=== PATIENT | male | born 1980 | race Two or more races ===

== ENCOUNTER 2023-02-24 16:19 | Emergency (ER) | payer SELFPAY ==
[~2023-02-24] VITALS: Ht 167.6 cm; Wt 81.0 kg
[2023-02-24 16:30] VITALS: TEMP 98.3; O2SAT 98
[2023-02-24] MEDS ORDERED: FOLIC ACID 1 MG, THIAMINE HCL 100 MG, MVI, ADULT NO.1 10 ML in DEXTROSE 5% WATER 1,000 ML IV ONE ×4 (16:30)
[2023-02-24 19:44] LABS: BASOPHILS % 1.1 % (0.0-2.0); EOSINOPHILS % 4.2 % (0.0-5.0); HEMATOCRIT. 29.7 % (42.0-52.0); HEMOGLOBIN. 9.1 g/dL (14.0-18.0); LYMPHOCYTES % 50.9 % (20.0-50.0); MEAN CORPUSCULAR HEMOGLOBIN 20.3 pg (28.0-32.0); MEAN CORPUSCULAR HGB CONC 30.8 g/dL (31.0-37.0); MEAN CORPUSCULAR VOLUME 65.9 fL (80.0-94.0); MEAN PLATELET VOLUME 8.1 fl (7.4-10.4); MONOCYTES % 8.1 % (2.0-8.0); NEUTROPHILS % 35.7 % (40.0-76.0); PLATELET 120 x1000/uL (130-400); RED CELL DISTRIBUTION WIDTH 24.3 % (11.6-14.6); WHITE BLOOD COUNT 3.2 x1000/uL (4.5-11.0)
[2023-02-24 19:45] LABS: ADD RBC MORPHOLOGY YES; DIFFERENTIAL COMMENT 1
[2023-02-24 19:59] LABS: CHLORIDE 110 mEq/L (98-107); INDEX HEMOLYSI 1 (1-3); INDEX ICTERIC 1 (1-4); INDEX LIPEMIC 1 (1-3); POTASSIUM 3.4 mEq/L (3.5-5.1); SODIUM 143 mEq/L (136-145)
[2023-02-24 20:08] LABS: ACETAMINOPHEN <2 ug/mL ug/mL (10-30); CALCIUM 7.6 mg/dL (8.5-10.1); CARBON DIOXIDE 31 mEq/L (21-32); CREATININE 0.5 mg/dL (0.6-1.3); GLUCOSE 107 mg/dL (70-105); UREA NITROGEN BLOOD 5 mg/dL (7-21)
[2023-02-24 20:27] LABS: ETHANOL BLOOD 503 mg/dL (-10)
[2023-02-24 20:41] VITALS: BP 128/70; PULSE 80; RESP 15
[2023-02-24 20:54] LABS: ANISOCYTOSIS 2+; HYPOCHROMASIA 1+; MICROCYTOSIS 3+; OVALOCYTES 1+; PLATELET ESTIMATE DECREASED; TARGET CELLS 1+
== END 2023-02-24 20:42 | disposition home or self-care (01) ==
LOC: ER 18:18
DX: T51.0X1A Toxic effect of ethanol, accidental (unintentional), initial encounter (principal); D61.818 Other pancytopenia; X58.XXXA Exposure to other specified factors, initial encounter
CPT/HCPCS: 36415; 80048; 80307; 80320; 80329; 85025; 99284; J3411; J3490; J7070; G0480

== ENCOUNTER 2024-07-24 00:22 | Emergency (ER) | payer SELFPAY ==
[~2024-07-24] VITALS: Ht 170.2 cm; Wt 82.0 kg
[2024-07-24 00:33] VITALS: BP 120/88; PULSE 88; RESP 14; TEMP 36.6; O2SAT 100
[2024-07-24] MEDS ORDERED: CEPH500C2 MT (04:18)
[2024-07-24] MEDS: KETOROLAC 15MG/ML VIAL IM ONE (04:41)
== END 2024-07-24 04:50 | disposition home or self-care (01) ==
LOC: ER 00:22 → EDUNIT# 00:22 → ER 04:50
DX: S09.8XXA Other specified injuries of head, initial encounter (principal); S00.83XA Contusion of other part of head, initial encounter; W19.XXXA Unspecified fall, initial encounter; Y93.89 Activity, other specified; Y92.89 Other specified places as the place of occurrence of the external cause; Y99.8 Other external cause status
CPT/HCPCS: 99285; 70450; 70486; 96372; J1885

== ENCOUNTER 2024-07-28 07:25 | Emergency (ER) | payer MEDICAID ==
[~2024-07-28] VITALS: Ht 172.7 cm; Wt 82.0 kg
[~2024-07-28 07:25] MED LIST: CEPH500C2 MT
[2024-07-28 07:32] VITALS: O2SAT 100
[2024-07-28 07:43] VITALS: BP 109/84; PULSE 110; RESP 18; TEMP 36.9; O2SAT 100
[2024-07-28 09:31] LABS: CHLORIDE 106 mEq/L (98-107); POTASSIUM 3.5 mEq/L (3.5-5.1); SODIUM 142 mEq/L (136-145)
[2024-07-28 09:32] LABS: CALCIUM 9.6 mg/dL (8.7-10.4); CARBON DIOXIDE 27 mEq/L (21-32)
[2024-07-28 09:37] LABS: CREATININE 0.6 mg/dL (0.6-1.3); GLUCOSE 91 mg/dL (70-105)
[2024-07-28 09:41] LABS: BASOPHILS % 2.2 % (0.0-2.0); DIFFERENTIAL COMMENT 0; EOSINOPHILS % 2.5 % (0.0-5.0); HEMATOCRIT. 31.3 % (42.0-52.0); LYMPHOCYTES % 20.4 % (20.0-50.0); MEAN CORPUSCULAR HEMOGLOBIN 25.1 pg (28.0-32.0); MEAN CORPUSCULAR HGB CONC 31.9 g/dL (31.0-37.0); MEAN CORPUSCULAR VOLUME 78.7 fL (80.0-94.0); MEAN PLATELET VOLUME 6.4 fl (7.4-10.4); MONOCYTES % 8.6 % (2.0-8.0); NEUTROPHILS % 66.3 % (40.0-76.0); PLATELET 711 x1000/uL (130-400); RED BLOOD CELL COUNT 3.98 mill/uL (4.7-6.1); RED CELL DISTRIBUTION WIDTH 21.6 % (11.6-14.6); WHITE BLOOD COUNT 8.6 x1000/uL (4.5-11.0)
[2024-07-28 09:54] LABS: TROPONIN I HIGH SENSITIVITY < 4 ng/L (3.0-53); UREA NITROGEN BLOOD < 5 mg/dL (9-23)
[2024-07-28] MEDS ORDERED: IBUP-2029 MT (10:07)
[2024-07-28] MEDS ORDERED: TUSSL MT (10:08)
== END 2024-07-28 10:45 | disposition home or self-care (01) ==
LOC: ER 07:25
DX: J06.9 Acute upper respiratory infection, unspecified (principal); B34.9 Viral infection, unspecified
CPT/HCPCS: 36415; 71045; 80048; 83880; 84484; 85025; 93005; 99285

== ENCOUNTER 2024-08-29 16:46 | Emergency (ER) | payer MEDICAID ==
[~2024-08-29] VITALS: Ht 165.1 cm; Wt 95.0 kg
[~2024-08-29 16:46] MED LIST changes: +IBUP-2029 MT; +TUSSL MT
[2024-08-29 16:54] VITALS: BP 117/78; PULSE 110; RESP 18; TEMP 37; O2SAT 98
== END 2024-08-29 18:20 | disposition left against medical advice (07) ==
LOC: ER 16:46
DX: M79.601 Pain in right arm (principal); Y08.89XA Assault by other specified means, initial encounter; Y93.89 Activity, other specified; Y92.89 Other specified places as the place of occurrence of the external cause; Y99.8 Other external cause status; Z53.21 Procedure and treatment not carried out due to patient leaving prior to being seen by health care provider

== ENCOUNTER 2024-08-31 13:47 | Emergency (ER) | payer MEDICAID ==
[~2024-08-31] VITALS: Ht 167.6 cm; Wt 82.0 kg
[2024-08-31 13:49] VITALS: O2SAT 97
[2024-08-31 15:02] LABS: CHLORIDE 99 mEq/L (98-107); POTASSIUM 2.9 mEq/L (3.5-5.1); SODIUM 143 mEq/L (136-145)
[2024-08-31 15:03] LABS: CALCIUM 8.9 mg/dL (8.7-10.4); CARBON DIOXIDE 27 mEq/L (21-32)
[2024-08-31 15:08] LABS: CREATININE 0.5 mg/dL (0.6-1.3); GLUCOSE 98 mg/dL (70-105)
[2024-08-31 15:11] LABS: PROTHROMBIN TIME 10.5 sec (9.6-11.0)
[2024-08-31 15:13] LABS: UREA NITROGEN BLOOD < 5 mg/dL (9-23)
[2024-08-31 15:15] LABS: BASOPHILS % 0.4 % (0.0-2.0); DIFFERENTIAL COMMENT 0; EOSINOPHILS % 0.1 % (0.0-5.0); HEMATOCRIT. 28.9 % (42.0-52.0); HEMOGLOBIN. 8.9 g/dL (14.0-18.0); LYMPHOCYTES % 11.2 % (20.0-50.0); MEAN CORPUSCULAR HEMOGLOBIN 22.3 pg (28.0-32.0); MEAN CORPUSCULAR HGB CONC 30.9 g/dL (31.0-37.0); MEAN PLATELET VOLUME 6.7 fl (7.4-10.4); MONOCYTES % 11.5 % (2.0-8.0); NEUTROPHILS % 76.8 % (40.0-76.0); PLATELET 174 x1000/uL (130-400); RED BLOOD CELL COUNT 4.01 mill/uL (4.7-6.1); RED CELL DISTRIBUTION WIDTH 21.7 % (11.6-14.6); WHITE BLOOD COUNT 6.2 x1000/uL (4.5-11.0)
[2024-08-31 15:23] LABS: ETHANOL BLOOD 449 mg/dL (<10)
[2024-08-31] MEDS ORDERED: POTASSIUM CHLORIDE 20MEQ TABLET SR PO ONE (18:00)
[2024-08-31] MEDS: POTASSIUM CHLORIDE 20MEQ TABLET SR PO NR (21:12)
[2024-08-31 21:14] VITALS: BP 128/75; PULSE 100; RESP 18; TEMP 36.9; O2SAT 97
== END 2024-08-31 21:13 | disposition home or self-care (01) ==
LOC: ER 13:47
DX: F10.90 Alcohol use, unspecified, uncomplicated (principal); E87.6 Hypokalemia; D64.9 Anemia, unspecified; I67.82 Cerebral ischemia; Y90.9 Presence of alcohol in blood, level not specified
CPT/HCPCS: 36415; 71250; 74176; 80048; 80320; 85025; 93005; 99284; G0480